=== PATIENT | female | born 1965 | race African-American/Black ===

== ENCOUNTER 2017-08-18 03:35 | Emergency (ER) | payer SELFPAY ==
[2017-08-18 03:37] VITALS: BP 138/84; PULSE 104; RESP 26; TEMP 97.8; O2SAT 99
[2017-08-18] MEDS ORDERED: SODIUM CHLOR 0.9% 1000 ML INJ 1,000 ML IV SCH (04:23)
--- NOTE | 2017-08-18 04:27 | PD ---
HPI Chief Complaint: Abdominal Pain Time Seen by Provider: 04:23 Travel History International Travel<30 days: No Contact w/Intl Traveler<30days: No Traveled to known affect area: No History of Present Illness HPI 52 year old female presents to the department for one day of abdominal pain with nausea vomiting and diarrhea. Patient states this evening she has vomited multiple times and had multiple episodes of diarrhea. Diarrhea is watery. No report of hematemesis coffee-ground emesis melena hematochezia. Patient denies any dietary indiscretion well water ingestion or foreign travel. Patient does have ventral hernia that she states is always present but this is where her tenderness is located. Previous hysterectomy. Patient denies other concerns or complaints. No local PMD. [facility] Past Medical History Narrative Medical Hysterectomy ventral hernia occasional alcohol use; nursing notes reviewed Medical History: Denies Significant Hx ?: Not Past Surgical History Hysterectomy: Yes Social History Alcohol Use: Yes Tobacco Use: No Substance Use: No Allergies-Medications (Allergen,Severity, Reaction): Coded Allergies: No Known Allergies (Unverified , 08/18/17) Reported Meds & Prescriptions No medication Review of Systems Except as stated in HPI: all other systems reviewed are Neg General / Constitutional: No: Fever, Chills Eyes: No: Visual changes HENT: No: Congestion Cardiovascular: No: Chest Pain or Discomfort Respiratory: No: Shortness of Breath Gastrointestinal: Positive: Nausea, Vomiting, Diarrhea, Abdominal Pain, No: Hematemesis, Hematochezia, Loss of Appetite Genitourinary: No: Dysuria, Pelvic Pain Musculoskeletal: No: Myalgias, Arthralgias Skin: No Rash Neurologic: No: Weakness Psychiatric: Positive: Anxiety Hematologic/Lymphatic: No: Easy Bruising Physical Exam Narrative GENERAL: SKIN: Warm and dry. HEAD: Normocephalic. EYES: No scleral icterus. No injection or drainage. NECK: Supple, trachea midline. No JVD or lymphadenopathy. CARDIOVASCULAR: Regular rate and rhythm without murmurs, gallops, or rubs. RESPIRATORY: Breath sounds equal bilaterally. No accessory muscle use. GASTROINTESTINAL: Abdomen soft, non-tender, nondistended. MUSCULOSKELETAL: No cyanosis, or edema. BACK: Nontender without obvious deformity. No CVA tenderness. Data Data Last Documented VS Vital Signs Date Time Temp Pulse Resp B/P (MAP) Pulse Ox O2 Delivery O2 Flow Rate FiO2 08/18/17 03:37 97.8 104 26 138/84 (102) 99 Orders Orders Complete Blood Count With Diff (08/18/17 04:23) Comprehensive Metabolic Panel (08/18/17 04:23) Lipase (08/18/17 04:23) Lactic Acid (08/18/17 04:23) Iv Access Insert/Monitor (08/18/17 04:23) Ecg Monitoring (08/18/17 04:23) Oximetry (08/18/17 04:23) Sodium Chlor 0.9% 1000 Ml Inj (Ns 1000 M (08/18/17 04:23) Sodium Chloride 0.9% Flush (Ns Flush) (08/18/17 04:30) Metoclopramide Inj (Reglan Inj) (08/18/17 04:30) Hydromorphone Pf Inj (Dilaudid Pf Inj) (08/18/17 04:30) Ct Abd/Pel W Iv Contrast(Rout) (08/18/17 ) Iohexol 350 Inj (Omnipaque 350 Inj) (08/18/17 05:50) Sodium Chlor 0.9% 1000 Ml Inj (Ns 1000 M (08/18/17 06:30) Lactic Acid (08/18/17 07:45) Labs Laboratory Tests Test 08/18/17 04:45 White Blood Count 15.6 TH/MM3 Red Blood Count 4.98 MIL/MM3 Hemoglobin 14.1 GM/DL Hematocrit 41.6 % Mean Corpuscular Volume 83.6 FL Mean Corpuscular Hemoglobin 28.4 PG Mean Corpuscular Hemoglobin Concent 33.9 % Red Cell Distribution Width 14.7 % Platelet Count 296 TH/MM3 Mean Platelet Volume 12.4 FL Neutrophils (%) (Auto) 87.5 % Lymphocytes (%) (Auto) 9.5 % Monocytes (%) (Auto) 2.6 % Eosinophils (%) (Auto) 0.0 % Basophils (%) (Auto) 0.4 % Neutrophils # (Auto) 13.6 TH/MM3 Lymphocytes # (Auto) 1.5 TH/MM3 Monocytes # (Auto) 0.4 TH/MM3 Eosinophils # (Auto) 0.0 TH/MM3 Basophils # (Auto) 0.1 TH/MM3 CBC Comment DIFF FINAL Differential Comment Blood Urea Nitrogen 10 MG/DL Creatinine 1.10 MG/DL Random Glucose 130 MG/DL Total Protein 9.6 GM/DL Albumin 4.3 GM/DL Calcium Level 9.3 MG/DL Alkaline Phosphatase 138 U/L Aspartate Amino Transf (AST/SGOT) 31 U/L Alanine Aminotransferase (ALT/SGPT) 30 U/L Total Bilirubin 0.5 MG/DL Sodium Level 137 MEQ/L Potassium Level 4.4 MEQ/L Chloride Level 101 MEQ/L Carbon Dioxide Level 24.7 MEQ/L Anion Gap 11 MEQ/L Estimat Glomerular Filtration Rate 63 ML/MIN Lactic Acid Level 3.0 mmol/L Lipase 124 U/L [facility] Medical Decision Making Medical Screen Exam Complete: Yes Emergency Medical Condition: Yes Medical Record Reviewed: Yes Interpretation(s) Last Impressions Abdomen/Pelvis CT 08/18/17 0000 Signed Impressions: Service Date/Time: Friday, August 18, 2017 05:47 - CONCLUSION: 1. Large ventral wall hernia on the right containing transverse colon. No signs of strangulation or obstruction. 2. Diverticulosis without diverticulitis. 3. Status post hysterectomy. 4. Mild hepatic steatosis. Sergo Martin MD CBC & BMP Diagram 08/18/17 04:45 Total Protein 9.6 H, Albumin 4.3, Calcium Level 9.3, Alkaline Phosphatase 138 H , Aspartate Amino Transf (AST/SGOT) 31, Alanine Aminotransferase (ALT/SGPT) 30, Total Bilirubin 0.5 Vital Signs Date Time Temp Pulse Resp B/P (MAP) Pulse Ox O2 Delivery O2 Flow Rate FiO2 08/18/17 03:37 97.8 104 26 138/84 (102) 99 Differential Diagnosis Abdominal pain, strangulated ventral hernia, incarcerated ventral hernia, bowel obstruction, gastroenteritis, electrolyte disturbance, diverticulitis, colitis, foodborne illness Narrative Course IV access obtained specimens collected and sent for resulting patient placed supine with ice pack and administered Reglan 10 mg IV Dilaudid 2 mg IV Gentle pressure for partial reduction of very large ventral hernia Patient resting comfortably after Dilaudid voicing no concerns or complaints there is been no vomiting CT abdomen and pelvis identifies large right ventral wall hernia containing transverse colon without obstruction or strangulation Patient resting comfortably however patient presents with increased respiratory rate heart rate white cell count and lactic acid level; patient is administered IV fluid hydration abdomen remains soft nontender palpable hernia but does not appear rigid firm distended or incarcerated. We will repeat lactic acid. Blood culture has been obtained patient given one-time dose of Zosyn and will reassess after repeat lactic acid if it is decreasing patient has had no vomiting or diarrhea in the emergency part may discuss with patient outpatient management but should she remain with an elevated lactic acid or have recurrent pain will place for admission/ Sepsis Criteria SIRS Criteria (2 or more): Heart rate over 90, RR > 20 or PaCO2 < 32, WBC > 04911, < 4000 or > 10% bands Sepsis Criteria (SIRS+source): Infect source susp/known (gastroenteritis/ abdominal pain/ hernia) Diagnosis Primary Impression: Gastroenteritis Additional Impressions: Ventral hernia Qualified Codes: K43.9 - Ventral hernia without obstruction or gangrene SIRS (systemic inflammatory response syndrome) Mica Salas MD August 18, 2017 04:27
[2017-08-18] MEDS ORDERED: SODIUM CHLORIDE 0.9% FLUSH 10 ML FLUSH IV FLUSH PRN (04:30)
[2017-08-18] MEDS ORDERED: METOCLOPRAMIDE HCL 10 MG/2 ML VIAL IV PUSH ONE (04:30)
[2017-08-18] MEDS ORDERED: HYDROmorphone HCL PF 2 MG/ML VIAL IV PUSH ONE ×2 (04:30)
[2017-08-18 05:17] LABS: AUTOMATED NEUTROPHIL # 13.6 TH/MM3 (1.8-7.7); BASOPHIL # 0.1 TH/MM3 (0-0.2); BASOPHIL % 0.4 % (0.0-2.0); HEMATOCRIT 41.6 % (35.0-46.0); HEMOGLOBIN 14.1 GM/DL (11.6-15.3); LYMPH % 9.5 % (9.0-44.0); LYMPHOCYTE # 1.5 TH/MM3 (1.0-4.8); MEAN CELL VOLUME 83.6 FL (80.0-100.0); MEAN CORPUSCULAR HEMOGLOBIN 28.4 PG (27.0-34.0); MEAN CORPUSCULAR HGB CONC 33.9 % (32.0-36.0); MEAN PLATELET VOLUME 12.4 FL (7.0-11.0); MONO % 2.6 % (0.0-8.0); MONOCYTE # 0.4 TH/MM3 (0-0.9); NEUT % 87.5 % (16.0-70.0); PLATELET COUNT 296 TH/MM3 (150-450); RED BLOOD COUNT 4.98 MIL/MM3 (4.00-5.30); RED CELL DISTRIBUTION WIDTH 14.7 % (11.6-17.2); WHITE BLOOD COUNT 15.6 TH/MM3 (4.0-11.0)
[2017-08-18 05:28] LABS: ALKALINE PHOSPHATASE 138 U/L (45-117); TOTAL BILIRUBIN ADULT 0.5 MG/DL (0.2-1.0); TOTAL PROTEIN 9.6 GM/DL (6.4-8.2)
[2017-08-18 05:34] LABS: ALBUMIN 4.3 GM/DL (3.4-5.0); ALT (GPT) 30 U/L (10-53); AST (GOT) 31 U/L (15-37); BICARBONATE 24.7 MEQ/L (21.0-32.0); BLOOD UREA NITROGEN 10 MG/DL (7-18); CALCIUM 9.3 MG/DL (8.5-10.1); CHLORIDE 101 MEQ/L (98-107); GLOMERULAR FILTRATION RATE 63 ML/MIN (>89); GLUCOSE,RANDOM 130 MG/DL (74-106); SODIUM (NA) 137 MEQ/L (136-145)
[2017-08-18] MEDS ORDERED: IOHEXOL 350 MG/ML 10 ML VIAL (for RAD DIAG) IVCONTRAST ONE (05:50)
--- NOTE | 2017-08-18 06:07 | RADRPT ---
EXAM DATE/TIME: 08/18/2017 05:47 [facility] COMPARISON: No previous studies available for comparison. INDICATIONS : Abdominal pain, nausea and diarrhea. IV CONTRAST: 100 cc Omnipaque 350 (iohexol) IV ORAL CONTRAST: No oral contrast ingested. RADIATION DOSE: 21.76 CTDIvol (mGy) MEDICAL HISTORY : None SURGICAL HISTORY : Hysterectomy. ENCOUNTER: Initial ACUITY: 1 day PAIN SCALE: 6/10 LOCATION: Abdomen. TECHNIQUE: Volumetric scanning of the abdomen and pelvis was performed. Using automated exposure control and ad justment of the mA and/or kV according to patient size, radiation dose was kept as low as reasonably achievable to obtain optimal diagnostic quality images. DICOM format image data is available electro nically for review and comparison. FINDINGS: LOWER LUNGS: The visualized lower lungs are clear. LIVER: Decreased density without lesion. There is no dilation of the biliary tree. No calcified gallstones . SPLEEN: Normal size without lesion. PANCREAS: Within normal limits. KIDNEYS: Normal in size and shape. There is no mass, stone or hydronephrosis. ADRENAL GLANDS: Within normal limits. VASCULAR: There is no aortic aneurysm. BOWEL/MESENTERY: Diverticulosis throughout the colon without diverticulitis.. There is no free intraperitoneal air or fluid. Normal appendix. ABDOMINAL WALL: Large ventral wall hernia containing peritoneal fat and transverse colon. No signs of strangulation o r obstruction.. RETROPERITONEUM: There is no lymphadenopathy. BLADDER: No wall thickening or mass. REPRODUCTIVE: Uterus is absent. INGUINAL: There is no lymphadenopathy or hernia. MUSCULOSKELETAL: Within normal limits for patient age. CONCLUSION: 1. Large ventral wall hernia on the right containing transverse colon. No signs of strangulation or o bstruction. 2. Diverticulosis without diverticulitis. 3. Status post hysterectomy. 4. Mild hepatic steatosis. Sergo Martin MD on August 18, 2017 at 6:03 Board Certified Radiologist. This report was verified electronically.
[2017-08-18 06:25] VITALS: BP 123/78; PULSE 86; RESP 20; O2SAT 99
[2017-08-18] MEDS ORDERED: SODIUM CHLOR 0.9% 1000 ML INJ 1,000 ML IV ONE (06:30)
[2017-08-18] MEDS ORDERED: PIPERACIL-TAZO 4.5 GM PREMIX 100 ML IV ONE (06:30)
[2017-08-18 08:00] VITALS: BP 135/67; PULSE 67; RESP 16; TEMP 98.5; O2SAT 98
[2017-08-18] MEDS ORDERED: KETOROLAC TROMETHAMINE 30 MG/ML (IVP) VIAL IVP ONE (08:00)
[2017-08-18 09:31] VITALS: BP 149/102
--- NOTE | 2017-08-18 09:33 | PD ---
Data Data Last Documented VS Vital Signs Date Time Temp Pulse Resp B/P (MAP) Pulse Ox O2 Delivery O2 Flow Rate FiO2 08/18/17 08:00 98.5 67 16 135/67 (89) 98 Room Air Orders Orders Complete Blood Count With Diff (08/18/17 04:23) Comprehensive Metabolic Panel (08/18/17 04:23) Lipase (08/18/17 04:23) Lactic Acid (08/18/17 04:23) Iv Access Insert/Monitor (08/18/17 04:23) Ecg Monitoring (08/18/17 04:23) Oximetry (08/18/17 04:23) Sodium Chlor 0.9% 1000 Ml Inj (Ns 1000 M (08/18/17 04:23) Sodium Chloride 0.9% Flush (Ns Flush) (08/18/17 04:30) Metoclopramide Inj (Reglan Inj) (08/18/17 04:30) Hydromorphone Pf Inj (Dilaudid Pf Inj) (08/18/17 04:30) Ct Abd/Pel W Iv Contrast(Rout) (08/18/17 ) Iohexol 350 Inj (Omnipaque 350 Inj) (08/18/17 05:50) Sodium Chlor 0.9% 1000 Ml Inj (Ns 1000 M (08/18/17 06:30) Lactic Acid (08/18/17 07:45) Blood Culture (08/18/17 06:20) Piperacil-Tazo 4.5 Gm Premix (Zosyn 4.5 (08/18/17 06:30) Ketorolac Inj (Toradol Inj) (08/18/17 08:00) Labs Laboratory Tests Test 08/18/17 04:45 08/18/17 06:30 White Blood Count 15.6 TH/MM3 Red Blood Count 4.98 MIL/MM3 Hemoglobin 14.1 GM/DL Hematocrit 41.6 % Mean Corpuscular Volume 83.6 FL Mean Corpuscular Hemoglobin 28.4 PG Mean Corpuscular Hemoglobin Concent 33.9 % Red Cell Distribution Width 14.7 % Platelet Count 296 TH/MM3 Mean Platelet Volume 12.4 FL Neutrophils (%) (Auto) 87.5 % Lymphocytes (%) (Auto) 9.5 % Monocytes (%) (Auto) 2.6 % Eosinophils (%) (Auto) 0.0 % Basophils (%) (Auto) 0.4 % Neutrophils # (Auto) 13.6 TH/MM3 Lymphocytes # (Auto) 1.5 TH/MM3 Monocytes # (Auto) 0.4 TH/MM3 Eosinophils # (Auto) 0.0 TH/MM3 Basophils # (Auto) 0.1 TH/MM3 CBC Comment DIFF FINAL Differential Comment Blood Urea Nitrogen 10 MG/DL Creatinine 1.10 MG/DL Random Glucose 130 MG/DL Total Protein 9.6 GM/DL Albumin 4.3 GM/DL Calcium Level 9.3 MG/DL Alkaline Phosphatase 138 U/L Aspartate Amino Transf (AST/SGOT) 31 U/L Alanine Aminotransferase (ALT/SGPT) 30 U/L Total Bilirubin 0.5 MG/DL Sodium Level 137 MEQ/L Potassium Level 4.4 MEQ/L Chloride Level 101 MEQ/L Carbon Dioxide Level 24.7 MEQ/L Anion Gap 11 MEQ/L Estimat Glomerular Filtration Rate 63 ML/MIN Lactic Acid Level 3.0 mmol/L 1.9 mmol/L Lipase 124 U/L [facility] Supervised Visit with JIMMY: No Narrative Course This case is checked out to me by Dr. Salas. She had ordered a repeat lactate 07/15/1945. The initial was elevated at 3 but she felt the patient would be safe to be discharged if the repeat was decreased. I did review the entirety of her workup. Repeat lactate was 1.9 Patient got somewhat frustrated with waiting and wanted to go home. She felt much better Unfortunately had a very critical patient with severe airway compromise and I could not get back to her room and she did not want to wait so she left AGAINST MEDICAL ADVICE. Diagnosis Primary Impression: Gastroenteritis Additional Impressions: Ventral hernia Qualified Codes: K43.9 - Ventral hernia without obstruction or gangrene SIRS (systemic inflammatory response syndrome) Patient Instructions: General Instructions Departure Forms: Tests/Procedures Disposition: 07 AGAINST MEDICAL ADVICE David Gayle MD August 18, 2017 09:33
== END 2017-08-18 09:35 | disposition left against medical advice (07) ==
LOC: NEPC 03:35
DX: K52.9 Noninfective gastroenteritis and colitis, unspecified (principal); K43.9 Ventral hernia without obstruction or gangrene; R65.10 Systemic inflammatory response syndrome (SIRS) of non-infectious origin without acute organ dysfunction
CPT/HCPCS: 74177; 80053; 83605; 83690; 85025; 87040; 96361; 96365; 96375; 99285; J1170; J1885; J2543; J2765; J7030; Q9967